=== PATIENT | male | born 1995 | race Caucasian/White ===

== ENCOUNTER 2021-04-11 12:36 | Emergency (ER) | payer OTHER ==
[2021-04-11] MEDS ORDERED: DELSYM30 MG/5 ML PO (14:15)
[2021-04-11] MEDS ORDERED: FLONASE 0.05% N16 GM (14:15)
== END 2021-04-11 14:20 | disposition home or self-care (01) ==
LOC: ER1 12:36
DX: J06.9 Acute upper respiratory infection, unspecified (principal); Z20.822 Contact with and (suspected) exposure to COVID-19
CPT/HCPCS: 0240U; 87081; 87880; 99283